=== PATIENT | male | born 1955 | race Caucasian/White ===

== ENCOUNTER 2018-10-28 14:55 | Inpatient (IN) | payer SELFPAY ==
[~2018-10-28] VITALS: Ht 172.7 cm; Wt 75.5 kg
[2018-10-28] MEDS ORDERED: LABETALOL HCL 20 ML ONE (15:31)
--- NOTE | 2018-10-28 15:36 | Diagnostic Imaging Report ---
ADDENDUM #[address] Kathy Cha's report were reviewed and signed by Dr. Cathryn Mckenzie, neuroradiology faculty, on 10/28/2018 at 1827 hours. Signed by: Dr. Cathryn Mckenzie M.D. on 10/28/2018 6:27 PM ORIGINAL REPORT HEAD CT WITHOUT CONTRAST History: Left-sided weakness Comparison studies: None Technique: Axial images were obtained from the skull base to the vertex. Coronal and sagittal reconstructions obtained from the axial data. Dose modulation, iterative reconstruction, and/or weight based adjustment of the mA/kV was utilized to reduce the radiation dose to as low as reasonably achievable. Findings: Scalp/skull: No abnormalities. No fractures, blastic or lytic lesions. Extra-axial spaces: No masses. No fluid collections. Brain sulci: Appropriate for age. Ventricles: Normal in size and configuration. No hydrocephalus. Parenchyma: Chronic lacunar infarct in the left frontal wilder radiata adjacent to the central sulcus (image 19, axial series). Mild hypodensities in the supratentorial white matter are small vessel ischemic changes. No masses, hemorrhage, acute or chronic cortical vascular insults. Sellar/suprasellar region: No abnormalities Craniocervical junction: Patent foramen magnum. No Chiari one malformation. Incidental: Air-fluid level in the left sphenoid sinus with mucosal thickening. IMPRESSION: 1. No acute abnormalities. Specifically, no mass, hemorrhage or acute vascular territorial insult. 2. Chronic lacunar infarct in the left frontal wilder radiata with mild supratentorial microvascular ischemic changes. Preliminary report dictated by Dr. Kathy Cha, Neuroradiology Fellow. A final report by the attending radiologist will follow. Signed by: Kathy Cha MD on 10/28/2018 3:33 PM
[2018-10-28 15:38] LABS: BASOPHILS # (AUTO) 0.1 (0.0-0.1); BASOPHILS % 0.5 % (0.0-1.0); EOSINOPHILS # (AUTO) 0.1 (0.0-0.4); EOSINOPHILS % 1.2 % (0.0-6.0); HEMATOCRIT 46.8 % (38.2-49.6); HEMOGLOBIN 16.3 g/dL (14.0-18.0); LYMPHOCYTES # (AUTO) 2.3 (1.0-3.2); LYMPHOCYTES % 22.6 % (18.0-39.1); MEAN CORPUSCULAR HEMOGLOBIN 31.6 pg (28-32); MEAN CORPUSCULAR HGB CONC 34.8 g/dL (31-35); MEAN CORPUSCULAR VOLUME 90.7 fL (81-99); MONOCYTES # (AUTO) 0.7 (0.2-0.8); MONOCYTES % 7.1 % (4.4-11.3); NEUTROPHILS # (AUTO) 7.1 (2.1-6.9); NEUTROPHILS % 68.4 % (38.7-80.0); PLATELET COUNT 319 x10e3/uL (140-360); RED BLOOD COUNT 5.16 x10e6/uL (4.3-5.7); RED CELL DISTRIBUTION WIDTH 12.5 % (11.7-14.4)
[2018-10-28 15:51] LABS: INR 0.87; PROTHROMBIN TIME 12.7 seconds (11.9-14.5)
[2018-10-28 15:52] LABS: PARTIAL THROMBOPLASTIN TIME 28.9 seconds (23.8-35.5)
[2018-10-28] MEDS ORDERED: LABETALOL HCL 5 MG/ML 20ML VIAL IV ONE (16:00)
[2018-10-28 16:01] LABS: ALANINE AMINOTRANSFERASE 13 IU/L (0-55); ALBUMIN 3.9 g/dL (3.5-5.0); ALBUMIN/GLOBULIN RATIO 1.2 (0.8-2.0); ALKALINE PHOSPHATASE 80 IU/L (40-150); ANION GAP 13.6 mmol/L (8-16); BLOOD UREA NITROGEN 21 mg/dL (7-26); BUN/CREATININE RATIO 20 (6-25); CALCIUM 9.4 mg/dL (8.4-10.2); CARBON DIOXIDE 21 mmol/L (22-29); CHLORIDE 109 mmol/L (98-107); CREATINE KINASE 91 IU/L (30-200); CREATININE, SERUM 1.04 mg/dL (0.72-1.25); EST GLOMERULAR FILTRATION RATE > 60 ML/MIN (60-); GLUCOSE 104 mg/dL (74-118); MAGNESIUM 2.4 MG/DL (1.3-2.1); POTASSIUM 3.6 mmol/L (3.5-5.1); SODIUM 140 mmol/L (136-145)
--- NOTE | 2018-10-28 16:03 | Diagnostic Imaging Report ---
EXAMINATION: CHEST SINGLE (PORTABLE) INDICATION: ^LEFT SIDED WEAKNESS ^[id number] ^1520 COMPARISON: None FINDINGS: AP view TUBES and LINES: None. LUNGS: Lungs are well inflated. Lungs are clear. There is no evidence of pneumonia or pulmonary edema. PLEURA: No pleural effusion or pneumothorax. HEART AND MEDIASTINUM: The cardiomediastinal silhouette is unremarkable.. BONES AND SOFT TISSUES: No acute osseous lesion. Soft tissues are unremarkable. UPPER ABDOMEN: No free air under the diaphragm. IMPRESSION: No acute thoracic abnormality. Signed by: Dr. Telma Araya M.D. on 10/28/2018 4:00 PM
[2018-10-28] MEDS: NICARDIPINE 20MG/200ML PREMIX 200 ML IV SCH (16:15)
[2018-10-28] MEDS ORDERED: ALTEPLASE 50 MG/VIAL (29 MILLION IU) IV ONE ×2 (16:30→16:45)
--- OUTSIDE RECORDS SUMMARY | 2018-10-28 16:50 | XMS REPORT ---
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 Allergies, Adverse Reactions, Alerts This patient has no known allergies or adverse reactions. Medications This patient has no known medications. Results Test Description Test Time Test Comments Text Results Atomic Results Result Comments CHEST SINGLE (PORTABLE) 2018-10-28 15:59:00 [facility] [address] [address] Patient Name: ISIDRO HOLDER MR #: [id number] : 1955 Age/Sex: 62/M Req #: [id number] Adm Physician: Ordered by: NUVIA GARDNER MD Report #: [id number] Location: ER Room/Bed: Procedure: [id number] DX/CHEST SINGLE (PORTABLE) Exam Date: 10/28/18 Exam Time: 1520 REPORT STATUS: Signed EXAMINATION: CHEST SINGLE (PORTABLE) INDICAT ION: LEFT SIDED WEAKNESS [id number] 1520 COMPARISON: None FINDINGS: AP view TUBES and LINES: None. LUNGS: Lungs are well inflated. Lungs are clear. There is no evidence of pneumonia or pulmonary edema. PLEURA: No pleural effusion or pneumothorax. HEART AND MEDIASTINUM: The cardiomediastinal silhouette is unremarkable.. BONES AND SOFT TISSUES: No acute osseous lesion. Soft tissues are unremarkable. UPPER ABDOMEN: No free air under the diaphragm. IMPRESSION: No acute thoracic abnormality. Signed by: Dr. Elly Pelletier M.D. on 10/28/2018 4:00 PM Dictated By: ELLY PELLETIER MD 99 Transcribed By: HARVINDER on 10/28/18 1600 COPY TO: NUVIA GARDNER MD CT BRAIN WO 2018-10-28 15:24:00 [address] [address] Patient Name: ISIDRO HOLDER MR #: [id number] : 1955 Age/Sex: 62/M Req #: [id number] Adm Physician: Ordered by: NUVIA GARDNER MD Report #: [id number] Location: ER Room/Bed: Procedure: [id number] CT/CT BRAIN WO Exam Date: Exam Time: REPORT STATUS: Signed HEAD CT WITHOUT CONTRAST History: Left-sided weakness Comparison theresa dies: None Technique: Axial images were obtained from the skull base to the vertex. Coronal and sagittal reconstructions obtained from the axial data. Dose modulation, iterative reconstruction, and/or weight based adjustment of the mA/kV was utilized to reduce the radiation dose to as low as reasonably achievable. Findings: Scalp/skull: No abnormalities. No fractures, blastic or lytic lesions. Extra-axial spaces: No masses. No fluid collections. Brain sulci: Appropriate for age. Ventricles: Normal in size and configuration. No hydrocephalus. Parenchyma: Chronic lacunar infarct in the left frontal wilder radiata adjacent to the central sulcus (image 19, axial series). Mild hypodensities in the supratentorial white matter are small vessel ischemic changes. No masses, hemorrhage, acute or chronic cortical vascular insults. Sellar/suprasellar region: No abnormalities Craniocervical junction: Patent foramen magnum. No Chiari one malformation. Incidental: Air-fluid level in the left sphenoid sinus with mucosal thickening. IMPRESSION: 1. No acute abnormalities. Specifically, no mass, hemorrhage or acute vascular territorial insult. 2. Chronic lacunar infarct in the left frontal wilder radiata with mild supratentorial microvascular ischemic changes. Preliminary report dictated by Dr. Kathy Cha, Neuroradiology Fellow. A final report by the attending radiologist will follow. Signed by: Kathy Cha MD on 10/28/2018 3:33 PM Dictated By: KATHY CHA MD 1533 Transcribed By: HARVINDER on 10/28/18 1533 COPY TO: NUVIA GARDNER MD
[2018-10-28] MEDS ORDERED: SODIUM CHLORIDE 0.9% 50ML 50 ML ONE (17:07)
--- NOTE | 2018-10-28 17:30 | NUR ---
NOTED A BLACK FOATER BEFORE HIS EYES; PUPILS CLEAR; DR GARDNER INFORMED.
--- NOTE | 2018-10-28 17:32 | NUR ---
C/O SUDDEN 'MASSIVE' HEADACHE ALL OVER THE TOP. TPA INFUSION STOPPED; DR GARDNER INFORMED AND WITH PT FOR REVIEW; TPA REMAINS STOPPED.
--- NOTE | 2018-10-28 18:30 | Diagnostic Imaging Report ---
Examination: CT head without contrast Clinical Indication: Severe headache. Technique: Transaxial noncontrast images from the skull base through the vertex were obtained. Sagittal and coronal reformatted images were done. Dose modulation, iterative reconstruction, and/or weight based adjustment of the mA/kV was utilized to reduce the radiation dose to as low as reasonably achievable. Comparison: Head CT performed today at 1509 hours. Findings: Scalp: No abnormalities. Bones: Intact. No fractures. No blastic or lytic lesions. Brain sulci: Appropriate for patient's age. Ventricles: Normal in size and configuration. No hydrocephalus. . Extra-axial space: No abnormalities. Parenchyma: Again demonstrated are scattered patchy areas of low-attenuation within subcortical and periventricular white matter, nonspecific, but could represent microvascular ischemic disease. No masses, hemorrhage, or acute or chronic cortical based vascular insults. Suprasellar region: No abnormalities. Craniocervical junction: The foramen magnum is patent. No Chiari one malformation. Impression: 1. No new acute intracranial finding when compared to head CT performed today at 1509 hours. 2. Unchanged chronic lacunar infarct in the left frontal wilder radiata with mild supratentorial microvascular ischemic changes. Signed by: Dr. Cathryn Mckenzie M.D. on 10/28/2018 6:26 PM
--- NOTE | 2018-10-28 18:53 | NUR ---
DR GARDNER SAYS THE SCAN IS OK AND TO RESUME THE TPA. SECOND 50 ML IS STARTED.
--- NOTE | 2018-10-28 19:43 | NUR ---
PER KEEP MAP BETWEEN 110-120, CARDENE TITRATED DOWN TO 2.5MG/HR
--- NOTE | 2018-10-28 22:00 | NUR ---
CARDENE DRIP TURNED OFF TO NOT DROP PATIENTS BLOOD PRESSURE SIGNIFICATLY. PATIENT IS NOT HYPERTENSIVE. NO DISTRESS NOTED TO PATIENT.
[2018-10-29] MEDS: FAMOTIDINE 20 MG/2 ML VIAL IV SCH ×2 (02:24→07:30)
[2018-10-29 04:34] LABS: BASOPHILS # (AUTO) 0.1 (0.0-0.1); BASOPHILS % 0.6 % (0.0-1.0); EOSINOPHILS # (AUTO) 0.2 (0.0-0.4); HEMATOCRIT 45.4 % (38.2-49.6); HEMOGLOBIN 15.8 g/dL (14.0-18.0); LYMPHOCYTES # (AUTO) 2.2 (1.0-3.2); LYMPHOCYTES % 24.7 % (18.0-39.1); MEAN CORPUSCULAR HEMOGLOBIN 31.6 pg (28-32); MEAN CORPUSCULAR HGB CONC 34.8 g/dL (31-35); MEAN CORPUSCULAR VOLUME 90.8 fL (81-99); MONOCYTES # (AUTO) 0.8 (0.2-0.8); MONOCYTES % 8.9 % (4.4-11.3); NEUTROPHILS # (AUTO) 5.7 (2.1-6.9); NEUTROPHILS % 63.6 % (38.7-80.0); PLATELET COUNT 302 x10e3/uL (140-360); RED CELL DISTRIBUTION WIDTH 12.8 % (11.7-14.4)
[2018-10-29 04:48] LABS: INR 0.93; PROTHROMBIN TIME 13.3 seconds (11.9-14.5)
[2018-10-29 04:49] LABS: PARTIAL THROMBOPLASTIN TIME 29.5 seconds (23.8-35.5)
[2018-10-29 04:56] LABS: ALANINE AMINOTRANSFERASE 11 IU/L (0-55); ALBUMIN 3.6 g/dL (3.5-5.0); ALBUMIN/GLOBULIN RATIO 1.2 (0.8-2.0); ALKALINE PHOSPHATASE 62 IU/L (40-150); ANION GAP 12.9 mmol/L (8-16); BLOOD UREA NITROGEN 21 mg/dL (7-26); BUN/CREATININE RATIO 21 (6-25); CARBON DIOXIDE 22 mmol/L (22-29); CHLORIDE 111 mmol/L (98-107); CHOL/HDL RATIO 3.5 (3.9-4.7); CHOLESTEROL 182 MD/DL (0-199); EST GLOMERULAR FILTRATION RATE > 60 ML/MIN (60-); GLUCOSE 97 mg/dL (74-118); HDL CHOLESTEROL 52 MG/DL (40-60); LDL CHOLESTEROL 105 MG/DL (60-130); POTASSIUM 3.9 mmol/L (3.5-5.1); SODIUM 142 mmol/L (136-145); TRIGLYCERIDES 124 MG/DL (0-149)
[2018-10-29 05:21] LABS: CREATINE KINASE MB 0.9 ng/mL (0-5.0)
--- NOTE | 2018-10-29 06:45 | NUR ---
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
--- NOTE | 2018-10-29 06:54 | NUR ---
spoke to for order clarification, ok to start diet without swallow evaluation. Walking rounds with cristian veliz
--- NOTE | 2018-10-29 07:00 | NUR ---
ALL IVS FLUSHED AND SITES WNL; DRSGS DRY.
--- NOTE | 2018-10-29 07:15 | NUR ---
DRANK TAP WATER, NO ICE, WITHOUT DIFFICULTY; NO CHOKING OR GAGGING; SWALLOWED EASILY.
--- NOTE | 2018-10-29 07:36 | NUR ---
DR MARY AWARE OF BP AND MAP; MAY HAVE DIET; SHE WILL BE IN TO SEE THE PT SHORTLY.
--- NOTE | 2018-10-29 08:30 | NUR ---
ATE HIS CARDIAC DIET FULLY BUT DRANK WATER, NOT PROVIDED DRINKS. NO CHOKING OR PROBLEMS SWALLOWING.
--- NOTE | 2018-10-29 09:00 | NUR ---
DR MARQUEZ HERE AT BEDSIDE; DR MARQUEZ AGREES KEEP BP MAP IS PER DR. MARY; DO NOT CHANGE BP MEDS AT THIS TIME.
--- NOTE | 2018-10-29 09:10 | NUR ---
ECHO CARDIOGRAM TECH HERE TO DO ECHO.
[2018-10-29] MEDS ORDERED: HYDRALAZINE HCL 25 MG TAB PO PRN (09:45)
--- NOTE | 2018-10-29 10:39 | NUR ---
CAROTID DOPPLER DONE AT BEDSIDE
[2018-10-29 10:55] LABS: CLARITY,URINE CLEAR (CLEAR); COLOR,URINE YELLOW (YELLOW)
[2018-10-29 10:56] LABS: BILIRUBIN,URINE NEGATIVE (NEGATIVE); KETONES,URINE NEGATIVE (NEGATIVE); LEUKOCYTE ESTERASE ,URINE NEGATIVE (NEGATIVE); NITRITE,URINE NEGATIVE (NEGATIVE); PROTEIN,URINE DIPSTICK 1+ (NEGATIVE); URINE UROBILINOGEN 1 mg/dL (0.2 - 1)
--- NOTE | 2018-10-29 10:56 | History and Physical ---
PRIMARY CARE PHYSICIAN: [facility]. CHIEF COMPLAINT: Left-sided weakness, status post TPA. HISTORY OF PRESENT ILLNESS: A 62-year-old male with hypertension, came in with hypertensive emergency. Patient also complained of left-sided weakness. Patient was immediately given TPA. Patient's left-sided weakness completely resolved. His blood pressure on admission was 168/124. Patient was noncompliant with his medications since he was unable to go to the [place] to get his medication. Previously, the patient was on blood pressure medication. PAST MEDICAL HISTORY: Hypertension. PAST SURGICAL HISTORY: Noncontributory. SOCIAL HISTORY: Patient is a [facility] patient. He does not smoke or use alcohol. No recreational drug use. ALLERGIES: NO KNOWN ALLERGY. HOME MEDICATIONS: None. PHYSICAL EXAMINATION VITAL SIGNS: Temperature is 98, blood pressure 168/124 previously, now is 151/111, pulse rate 70, and respirations 20. GENERAL: Patient in no acute distress. HEENT: Normocephalic, atraumatic. Sclerae anicteric. NECK: Supple grossly. PULMONARY: Clear. CARDIOVASCULAR: Regular rate and rhythm. ABDOMEN: Soft, unremarkable. EXTREMITIES: No cyanosis or edema. NEUROLOGIC: No gross focal deficit. LABORATORY: WBC is 10, hemoglobin 16, hematocrit 46, platelets are 319. Chemistry: Sodium is 140, potassium 3.6, chloride 109, bicarb 21, BUN is 21, creatinine 1.04, glucose is 104. Coagulation unremarkable. IMPRESSION 1. Left hemiparesis, resolved status post tissue plasminogen activator. 2. Hypertensive emergency. PLAN: Continue with medication recommendation by Dr. Yesica Bucio, neurologist. Obtain carotid Doppler and echocardiogram. Obtain lipid panel. Patient will be placed on blood pressure medication when more appropriate. Otherwise, the patient is stable at this time. Job#: [id number] MANNY
[2018-10-29 10:57] LABS: AMPHETAMINES SCREEN,URINE NEGATIVE (NEGATIVE); BENZODIAZEPINES SCREEN,URINE NEGATIVE (NEGATIVE); PHENCYCLIDINE SCREEN,URINE NEGATIVE (NEGATIVE)
[2018-10-29 11:11] LABS: BACTERIA,URINE FEW /HPF; EPITHELIAL CELLS,URINE FEW /LPF; MUCUS,URINE FEW (RARE); RBC,URINE 0-5 /HPF (0-5); WBC,URINE (MAN) 0-5 /HPF (0-5)
--- NOTE | 2018-10-29 11:32 | NUR ---
DR MARY WITH PT
--- NOTE | 2018-10-29 12:00 | NUR ---
BP MEDS DISCUSSED WITH DR MARY; PROTOCOL IS NO MEDS UNLESS SYSTOLIC BETWEEN 170 AND 200
[2018-10-29 12:49] LABS: CREATINE KINASE MB 0.8 ng/mL (0-5.0)
--- NOTE | 2018-10-29 13:30 | NUR ---
CARDIAC DIET SERVED; PJT ATE 100% Addendum: 10/29/18 at 1337 by THIEN CARDIAC DIET SERVED; PT ATE 100%
--- NOTE | 2018-10-29 14:54 | Consultation ---
DATE OF CONSULTATION: October 29, 2018 NEUROLOGY CONSULT NOTE HISTORY OF PRESENT ILLNESS: Mr. Dubose is a 62-year-old right hand dominant man with past medical history significant for hypertension (not adherent to medication regimen), admitted to [facility] on October 28, 2018 with symptoms concerning for a stroke. At approximately 1300 on the day of admission, the patient was walking when he experienced the abrupt onset of blurred vision affecting left eye, dysarthria, left hemiparesis, poor balance and gait impairment, and dizziness, which he further describes as lightheadedness. Mr. Dubose returned to home and laid down for 1 hour, hoping the symptoms would resolve. However, when the symptoms persisted past 1 hour, the patient notified emergency medical services and was transported to [facility] by ambulance for further evaluation. Upon arrival in the emergency center, the patient was afebrile with a blood pressure of 168/124 mmHg and pulse is 75 beats per minute. The patient's neurological examination was significant for left hemiparesis with strength of approximately 3/5 given for the left arm and left leg, diminished sensation to light touch and pinprick over the left arm and left leg, and impairment of balance and gait. A CT of the brain without contrast was performed, this study did not show evidence of recent large territorial ischemia or hemorrhage. Mr. Dubose was determined to be a candidate for treatment with intravenous thrombolytics. He received a bolus dose of tPA 7.3 mg IV at 1655. This was followed by an infusion of 66.1 mg intravenously at 1657. Approximately 30 to 40 minutes into the infusion, the patient endorsed a severe headache. The infusion was held, and Mr. Dubose was taken for a stat CT of the brain without contrast. There is no evidence of recent ischemia or hemorrhage on the scan. Mr. Dubose returned to the emergency center and received the remainder of the infusion approximately 45 minutes later. Mr. Dubose reports his symptoms have improved significantly since receiving treatment with intravenous thrombolytics. He reports dysarthria, weakness, and other symptoms have completely resolved. The patient does not report experiencing similar symptoms previously. Prior to this admission, the patient was not taking antiplatelet or anticoagulant medication daily. REVIEW OF SYSTEMS: Blurred vision affecting the left eye, dysarthria, left hemiparesis, impairment of balance and gait, headache. Otherwise, the 12-point review of systems is negative. PAST MEDICAL HISTORY: Hypertension, nephrolithiasis, chronic neck pain. PAST SURGICAL HISTORY: Lithotripsy, other procedures to remove kidney stones x2, right knee surgery, vasectomy. PAST HOSPITALIZATIONS: Surgeries/procedures as listed. FAMILY MEDICAL HISTORY: The patient's paternal and maternal grandparents are . The paternal grandmother from an unknown cancer. Medical histories of the other grandparents are unknown. The patient's father is as a result of an accident. Mr. Dubose's mother is from melanoma. The patient has 1 brother who is alive and healthy. Mr. Dubose has 4 children, 2 sons and 2 daughters, all of whom are alive and healthy. SOCIAL HISTORY: The patient is . He works in the [employer] for [employer]. The patient does not report current or prior tobacco, alcohol, or recreational drug use. HOME MEDICATIONS: None at the time of admission. ALLERGIES: NO KNOWN DRUG ALLERGIES. NO KNOWN FOOD ALLERGIES. NO KNOWN ALLERGIES TO . LATEX. NO KNOWN ALLERGIES TO IODINE OR OTHER CONTRAST MATERIALS. PHYSICAL EXAMINATION VITAL SIGNS: Height 68 inches, weight 180 pounds, BMI 27.4 kg per meter squared. Blood pressure 161/116 mmHg, pulse 68 beats per minute, respiratory rate 20 breaths per minute, oxygen saturation 99% on room air. GENERAL: The patient is awake and alert, does not appear distressed. Overweight. HEENT: Normocephalic, atraumatic. Pupils are equal, round, and reactive to light. Moist mucous membranes. NECK: Supple. No appreciable thyromegaly. No appreciable carotid bruits. CARDIOVASCULAR: S1, S2, regular rate and rhythm. No murmurs, rubs, or gallops. RESPIRATORY: Clear to auscultation bilaterally. No wheezes, rhonchi, or rales. EXTREMITIES: The skin is warm and dry. No clubbing, cyanosis, or edema. The posterior tibial and dorsalis pedis pulses are 1+ and symmetric. SKIN: No rashes or lesions. Lack of hair distal to the mid foreleg. NEUROLOGIC Memory/Attention: The patient is awake and alert, oriented to person, place, time, and situation. Cranial Nerves: Cranial nerve I - not tested. Cranial nerve II, III, IV, and - pupils are equal and round, react briskly to light (from 4 mm to 2 mm). Extraocular movements intact. No nystagmus. Cranial nerve V - sensation to light touch and pinprick is intact in the bilateral V1 through V3 distributions. Strength of the temporalis and masseter muscles is within normal limits. Cranial nerve VII - the face is symmetric as are all facial movements. Strength is within normal limits. Cranial nerve VII - hearing is intact to finger rub bilaterally. Cranial nerve IX, X - the soft palate elevates equally and symmetrically. Cranial nerve XI - normal strength of the bilateral sternocleidomastoid and trapezius muscles. Cranial nerve XII - the tongue protrudes midline and moves symmetrically from side to side. Strength: Bulk is normal. Strength is 5/5 in the bilateral deltoids, biceps, triceps, wrist flexors and extensors, finger flexors and extensors, intrinsic hand muscles, hip flexors, knee flexors and extensors, ankle dorsiflexion and plantar flexion, and intrinsic foot muscles. Tone is normal. DTRs: Deep tendon reflexes are 2+ and symmetric at the triceps, biceps, brachioradialis, and patellas. Deep tendon reflexes are trace and symmetric at the Achilles. Plantar responses are flexor bilaterally. Sensation: Sensation is intact to light touch and pinprick in both arms and both legs. Cerebellar: Agseaf-utpg-axqban and heel-roberson movements are intact without dysmetria or other impairment. Gait: Deferred. Speech: Spontaneous speech is normal without appreciable dysarthria or dysphagia. Involuntary Movements: None. Pronator Drift: None. LABORATORY DATA: The most recent basic metabolic panel is significant for a chloride of 111. Cardiac enzymes negative x2. B-natriuretic peptide 31.7. Total cholesterol 182, triglycerides 124, LDL cholesterol 105, HDL cholesterol 52. The CBC with differential and platelets is unremarkable. Coagulation profile is within normal limits. A urinalysis is significant for specific gravity of 1.030, 1+ protein. Urine drug screen is negative. DIAGNOSTIC STUDIES: Electrocardiogram, October 28 2018: Normal sinus rhythm at 74 beats per minute. Chest x-ray, October 28, 2018: No acute thoracic abnormality. CT of the brain without contrast, October 28, 2018: On my review, there is no evidence of recent large territorial ischemia, hemorrhage, mass, or mass effect. Chronic lacunar infarct is seen in the left wilder radiata. Cerebral volumes are appropriate for age. There are findings compatible with [id number] chronic small vessel ischemic disease. CT of the brain without contrast, October 28, 2018: Unchanged from prior CT of the brain without contrast. Echocardiogram, October 29, 2018: Ejection fraction 50% to 55%. Concentric left ventricular hypertrophy. Bilateral carotid artery ultrasound with Doppler, October 29, 2018: No atherosclerosis in either carotid artery system. Flow is antegrade in the bilateral vertebral arteries. ASSESSMENT AND PLAN: Mr. Dubose is a 62-year-old right hand dominant man with past medical history as detailed, admitted to [facility] for October 28, 2018 with symptoms suggestive of an acute stroke in the right middle cerebral artery distribution, status post treatment with intravenous thrombolytics. At present, the patient's neurological examination is nonfocal. His laboratory data and other diagnostic studies have been reviewed and are documented above. RECOMMENDATIONS 1. A hemoglobin A1c will be ordered. 2. An MRI of the brain without contrast has been ordered and is pending. 3. No antiplatelet or anticoagulant medication 24 hours status post tPA. Once this period has passed, the patient may be treated with aspirin 325 mg by mouth daily for stroke prophylaxis. 4. Allow permissive hypertension for 24 or 48 hours, status post stroke. At present, the patient's goal blood pressure is 170 to 200 mmHg systolic and 70 to 100 mmHg diastolic. Mr. Dubose has orders for a Cardene infusion, if needed. P.r.n. hydralazine has been ordered as well for systolic blood pressure greater than 200 mmHg. 5. The patient's goal total cholesterol is less than 200 with a LDL less than 70. Treatment with atorvastatin will be continued, but the dose will be increased to 40 mg by mouth at bedtime daily. 6. The patient's goal hemoglobin A1c is less than 7.0. Follow up the results of the hemoglobin A1c. Tight glycemic control is recommended while the patient is in the hospital. 7. Physical and speech therapy consultations will be ordered. 8. GI prophylaxis with Pepcid 20 mg by mouth twice daily with meals. DVT prophylaxis with GABRIELA hose and SCDs for 24 hours, status post administration of intravenous thrombolytics. Once that time period has passed, Mr. Dubose may be treated with Lovenox 40 mg subcutaneously daily. 9. Defer treatment of the remaining medical comorbidities to the primary and other services following the patient. Thank you for this consultation. I will continue to follow this patient while he remains in the hospital. TIME SPENT: 50 minutes. Job#: [id number] MARYSE RUCKER
--- NOTE | 2018-10-29 15:00 | NUR ---
PT NOTING MILD HEADACHE; WILL CALL MD; LIGHTS LOWERED TO ALEVIATE PAIN; DOES NOT WANT/NEED ANY PAIN MEDS FOR THIS SEE PAIN ASSESSMENT.
[2018-10-29] MEDS: NICARDIPINE 20MG/200ML PREMIX 200 ML IV SCH (16:15)
--- NOTE | 2018-10-29 16:32 | NUR ---
PT WITH INCREASE IN HEADACHE TO PS 6/10; DR MARY CALLED; WILL GIVE TYLENOL PO
--- NOTE | 2018-10-29 17:15 | NUR ---
DR MARY AWARE OF INCREASING PAIN. DOES NOT WANT TO GIVE ANY BP MEDS AT THIS TIME BUT LEAVES ORDER FOR A ONE TIME DOSE OF TRAMADOL 50 MG PO.
[2018-10-29] MEDS ORDERED: ACETAMINOPHEN 325 MG TAB PO ONE (17:30)
[2018-10-29] MEDS: ONDANSETRON HCL INJ 2MG/ML 2ML 2 MG/ML VIAL IV PRN (18:10)
[2018-10-29] MEDS ORDERED: TRAMADOL HCL 50 MG TAB PO ONE ×2 (18:30→19:00)
[2018-10-29] MEDS: FAMOTIDINE 20 MG TAB PO SCH (19:48)
[2018-10-29] MEDS ORDERED: LORAZEPAM INJ 2 MG/ML VIAL IV ONE (20:00)
--- NOTE | 2018-10-29 20:00 | NUR ---
UPON ASSESMENT PATIENT NOTED TO BE RESTLESS STATING, " MY GIRLFRIEND ENDED HER RELATIONSHIP WITH ME AND IM AN EMOTIONAL MESS", PATIENT IS MOVING IN BED AND NOT LAYING STILL. BP IS 176/113, CALLED DR MARY REGARDING BP, ALSO, PATIENT STATES PAIN IN HIS HEAD IS 10 OF 10. MD WAS ALSO INFORMED OF THIS, RECEIEVED ORDERS FOR 650MG ACETAMINOPHEN Q 6 HOURS PRN. THE DECISION WAS MADE TO GIVE ATIVAN 1MG IV X 1 AND SEE IF BP DROPS TO GIVEN PARAMETERS, IF NOT SUCCESSFUL, RESTART CARDENE DRIP PER TITRATION PROTOCOL TO KEEP BP PARAMETERS WITHIN ORDERED RANGES.
[2018-10-29] MEDS ORDERED: ATORVASTATIN 10 MG TAB PO SCH (21:00)
[2018-10-29 21:30] VITALS: BP 157/103
[2018-10-29 21:35] VITALS: BP 166/113
--- NOTE | 2018-10-29 21:35 | NUR ---
RECEIVED REPORT ON PT AND ACCEPTED TO ROOM ,MADE COMFORTABLE, DENIES PAIN AND DISCOMFORTS AT THIS TIME, PT ASSISTED TO BED AND MADE COMFORTABLE. CONNECTED TO MONITOR, INSTRUCTED PT TO CALL FOR ASSISTANCE BED ALARM ON, PT VERBALIZED UNDERSTANDING,
[2018-10-29 21:40] VITALS: BP 157/103
[2018-10-29] MEDS: ACETAMINOPHEN 325 MG TAB PO PRN (21:59)
[2018-10-29] MEDS: ATORVASTATIN 40 MG TAB PO SCH (22:08)
[2018-10-29 22:30] VITALS: BP 130/86
[2018-10-29 23:30] VITALS: BP 141/99
[2018-10-30] VITALS (23 sets, daily range): BP systolic 127–181; BP diastolic 90–127
--- NOTE | 2018-10-30 02:00 | NUR ---
PT RESTING WELL WITH EYES CLOSED, NO S/S OF DISTRESS NOTED
[2018-10-30] MEDS: ACETAMINOPHEN 325 MG TAB PO PRN ×2 (05:47→05:53)
--- NOTE | 2018-10-30 06:44 | NUR ---
PT C/O CUI STATES TYLENOL NOT HELPING, ADMINISTERED APRESOLINE 25MG AND ZOFRAN, INFORMED PT OF WHAT MEDICATIONS ARE FOR TO SEE IF THEY WILL HELP, PT VERBALIZED UNDERSTANDING.
--- NOTE | 2018-10-30 07:10 | NUR ---
ASSIISTED PT UP OOB TO BR TO VOID AND DEFECATE, PT C/O DIZZINESS ON THE WAY BACK TO BED, INSTRUCTED TO CALL FOR ASSISTANCE TO GET OOB, BED ALARM ON FOR SAFETY.
--- NOTE | 2018-10-30 07:50 | NUR ---
REPORTED OFF TO JUAN LUIS HATFIELD RN, PT STABLE AT THIS TIME
[2018-10-30] MEDS: FAMOTIDINE 20 MG TAB PO SCH ×2 (08:21→16:52)
--- NOTE | 2018-10-30 10:58 | NUR ---
PT STATES HE HAS [facility] BENEF[facility]; GAVE PACKET OF INFORMATION WITH [employer] [employer] FOR ASSISTANCE WITH LOW TO NO INCOME TO PATIENT. RESOURCES THAT PATIENT MAY BE ABLE TO FOLLOW UP UPON DISCHARGE. PT EDUCATED ON EACH RESOURCE AND UNDERSTANDING HOW TO FOLLOW UP TO SEE IF QUALIFIED FOR EACH RESOURCE.
--- NOTE | 2018-10-30 11:19 | Diagnostic Imaging Report ---
MRI BRAIN WO HISTORY: CVA, hypertensive, left-sided weakness COMPARISON: Head CT 10/28/2018 TECHNIQUE: Sagittal T2, axial T2, axial T1, axial T2/FLAIR, axial gradient echo (or susceptibility weighted), coronal T2/FLAIR, and axial diffusion weighted MR images of the brain were obtained without contrast. DISCUSSION: Scalp/bone marrow: Unremarkable. Brain sulci: Appropriate for patient's age. Ventricles: Normal in size and configuration. No hydrocephalus. Extra-axial spaces: No masses or fluid collections. Parenchyma: Scattered T2/FLAIR hyperintense foci throughout the supratentorial white matter are likely chronic microvascular ischemic changes. There is an associated old small lacunar infarct in the left wilder radiata. Otherwise, no mass, hemorrhage, or acute vascular insults. 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 Sellar/Suprasellar region: No abnormalities. Craniocervical junction: No abnormalities. Incidental findings: There is mild mucosal thickening in the left maxillary sinus. IMPRESSION: 1. No acute intracranial abnormalities. 2. Mild supratentorial chronic microvascular ischemic change. 3. Dolichoectasia of the anterior circulation. Signed by: Dr. Damon Felton M.D. on 10/30/2018 11:16 AM
--- NOTE | 2018-10-30 11:41 | NUR ---
PATIENT AMBULATED ON UNIT WITH PHYSICAL THERAPY. O2 SATS AT 99% ON ROOM AIR. CONTINUOUS EKG MONITORING.
[2018-10-30] MEDS: ONDANSETRON HCL INJ 2MG/ML 2ML 2 MG/ML VIAL IV PRN (12:38)
[2018-10-30] MEDS ORDERED: TRAMADOL HCL 50 MG TAB PO NR (12:45)
[2018-10-30] MEDS: NICARDIPINE 20MG/200ML PREMIX 200 ML IV SCH (16:15)
[2018-10-30] MEDS: ASPIRIN 325 MG TAB EC PO SCH (17:40)
[2018-10-30] MEDS: AMLODIPINE BESYLATE 10 MG TAB PO SCH (17:40)
[2018-10-30] MEDS ORDERED: ENOXAPARIN SOD INJ 40 MG/0.4 ML SYR SC SCH (17:45)
[2018-10-30] MEDS: LISINOPRIL 20 MG TAB PO SCH (20:14)
[2018-10-30] MEDS: ATORVASTATIN 40 MG TAB PO SCH (20:14)
[2018-10-31] VITALS (7 sets, daily range): BP systolic 97–147; BP diastolic 68–97
--- NOTE | 2018-10-31 00:15 | NUR ---
Patient c/o headache 5/10 and requesting something for pain. RN explained he had tylenol PO available and the patient requested something else. RN called Dr. Allan and updated him on patient's status, Patient's VS WNL, BP 147/97. Dr. Allan denied request for alternative pain medication. RN then informed the patient at which time he requested Tylenol. RN brought him a relaxation kit as well to help him relax. Will continue to monitor.
[2018-10-31] MEDS: ACETAMINOPHEN 325 MG TAB PO PRN (00:20)
[2018-10-31] MEDS: FAMOTIDINE 20 MG TAB PO SCH (08:37)
[2018-10-31] MEDS: ASPIRIN 325 MG TAB EC PO SCH (08:37)
[2018-10-31] MEDS: LISINOPRIL 20 MG TAB PO SCH (08:38)
[2018-10-31] MEDS: AMLODIPINE BESYLATE 10 MG TAB PO SCH (08:38)
[2018-10-31] MEDS ORDERED: LIPITOR20 MG PO (09:35)
[2018-10-31] MEDS ORDERED: NORVASC5 MG PO (09:36)
[2018-10-31] MEDS ORDERED: ECOTRIN325 MG PO (09:37)
[2018-10-31] MEDS ORDERED: LISINOPRIL10 MG PO (09:38)
--- NOTE | 2018-11-01 04:52 | Discharge Summary ---
[employer]: Yesica Bucio MD. FINAL DIAGNOSES: 1. Acute ischemic cerebrovascular accident as well as hypertensive emergency. The patient had a left-sided paralysis status post tPA, completely resolved. 2. Post tPA headache, no bleed, stable, improving. 3. Hypertension, noncompliant. HOSPITAL COURSE: A [id number], the patient came to the hospital because he was having left-sided weakness. The patient quite noncompliant with his medications. His systolic blood pressure was over 200. The patient was given medication, subsequently blood pressure dropped and then subsequently the patient underwent tPA ordered by Dr. Yesica Bucio, Neurology, on consultation. The patient responded well. His weakness completely resolved. The patient's blood pressure now is stable. He is comfortable. MRI of the brain, there was no bleeding. There was no obvious injury. No new findings. The patient has been cleared by Dr. Bucio for discharge home. Discharged the patient home. Refill the patient's home medications especially blood pressure medications. The patient is to follow up with his physician at the [facility] for continuing his medical care. MD JOANNE Roche/VALENTINE /[id number]
== END 2018-10-31 14:24 | disposition home or self-care (01) | DRG 62 ==
LOC: ER 14:55 → ERHOLD 16:39 → ICU 10-29 21:05
PROVIDERS: ADMIT Internal Medicine; ATTEND Internal Medicine
DX: I63.9 Cerebral infarction, unspecified (principal); G81.94 Hemiplegia, unspecified affecting left nondominant side; I16.1 Hypertensive emergency; Z91.14 Patient's other noncompliance with medication regimen
CPT/HCPCS: 36415; 70450; 70551; 71045; 80053; 80061; 80307; 81001; 82550; 82553; 83036; 83735; 83880; 84484; 85025; 85610; 85730; 92523; 93005; 93306; 93880; 97139; 99284; J1650; J2060; J2405